=== PATIENT | female | born 1965 | race Caucasian/White ===

== ENCOUNTER 2019-09-05 09:58 | Emergency (ER) | payer BC ==
[~2019-09-05] VITALS: Ht 160 cm; Wt 78.0 kg
[2019-09-05] MEDS ORDERED: LIPITOR10 M1 PO (10:34)
[2019-09-05] MEDS ORDERED: METFORMIN500 M2 PO (10:35)
[2019-09-05 10:47] LABS: HEMATOCRIT 54.9 % (37.0-47.0); HEMOGLOBIN 18.1 g/dl (12.0-16.0); IMMATURE GRANULOCYTES 0.4 % (0.0-5.0); MEAN CELL VOLUME 89.9 fL CALC (80.0-100.0); MEAN CORPUSCULAR HGB 29.6 pG CALC (26.0-32.0); NEUT# 7.64 thou/uL (2.00-7.15); RED BLOOD COUNT 6.11 mill/uL (4.20-5.60); RED CELL DISTRI WIDTH 14.6 % (11.5-15.5)
[2019-09-05 11:05] LABS: ALBUMIN 4.7 g/dL (3.2-5.0); ALKALINE PHOSPHATASE 80 u/l (38-126); ANION GAP 10 (6-22 (CALC)); BILIRUBIN, TOTAL 0.4 mg/dL (0.0-1.4); BUN 8 mg/dL (7-17); BUN/CREATININE RATIO 14 (12-20 (CALC)); CARBON DIOXIDE 32 mmol/l (22-30); CHLORIDE 101 mmol/l (95-108); CREATININE 0.5 mg/dL (0.5-1.0); GFR > 60 ML/MIN (>=60 (CALC)); GFR FOR AFR.AMER. > 60 ML/MIN (>=60 (CALC)); POTASSIUM 4.1 mmol/l (3.5-5.1); SGOT/AST 25 u/l (14-36); SODIUM 139 mmol/l (137-146); TOTAL PROTEIN 7.2 g/dL (6.3-8.2)
[2019-09-05 11:20] VITALS: BP 177/67
[2019-09-05] MEDS ORDERED: ROBITUSSIN AC10 ML PO (11:24)
[2019-09-05] MEDS ORDERED: CEPHALEXIN500 MG PO (11:24)
--- NOTE | 2019-09-07 12:43 | NUR ---
Notified patient of negative Covid results. Patient c/o continued cough. Advised patient to follow up with PCP or return to ED with difficulty breathing or other urgent needs. Patient verbalized understanding.
== END 2019-09-05 11:40 | disposition home or self-care (01) | DRG 153 ==
LOC: ED 09:58
PROVIDERS: Emergency Medicine
DX: J06.9 Acute upper respiratory infection, unspecified (principal); E11.9 Type 2 diabetes mellitus without complications; Z79.84 Long term (current) use of oral hypoglycemic drugs; Z20.828 Contact with and (suspected) exposure to other viral communicable diseases

== ENCOUNTER 2022-05-15 10:53 | Emergency (ER) | payer SELFPAY ==
[~2022-05-15] VITALS: Ht 160 cm; Wt 58.1 kg
[~2022-05-15 10:53] MED LIST: CEPHALEXIN500 MG PO; LIPITOR10 M1 PO; METFORMIN500 M2 PO; ROBITUSSIN AC10 ML PO
[2022-05-15] MEDS ORDERED: PROCTO-MED HC2.5 % PR (11:17)
[2022-05-15 11:35] VITALS: BP 144/78
== END 2022-05-15 11:37 | disposition home or self-care (01) | DRG 395 ==
LOC: ED 10:53
DX: K62.89 Other specified diseases of anus and rectum (principal); K64.9 Unspecified hemorrhoids; E11.9 Type 2 diabetes mellitus without complications; Z79.84 Long term (current) use of oral hypoglycemic drugs

== ENCOUNTER 2022-08-01 10:03 | Day surgery (SDC) | payer SELFPAY ==
[~2022-08-01] VITALS: Ht 162.6 cm; Wt 70.8 kg
[~2022-08-01 10:03] MED LIST changes: +ACETAMINOPHEN325 MG PO; +MOTRIN400 MG/TAB PO; +PAROXETINE10 MG PO; +PROCTO-MED HC2.5 % PR
[2022-08-01] MEDS ORDERED: PERCOCET 5/321 COMBO PO (12:29)
[2022-08-01 14:19] VITALS: BP 111/68
== END 2022-08-01 13:40 | disposition home or self-care (01) | DRG 845 ==
LOC: ENDO 10:03 → ORM 12:35 → ENDO 13:05 → ORM 13:05 → ENDO 13:40
PROVIDERS: ATTEND Surgery
PROC: 0DBN8ZX Excision of Sigmoid Colon, Via Natural or Artificial Opening Endoscopic, Diagnostic (ICD-10-PCS; principal; 2022-08-01)
PROC: 0DBP3ZX Excision of Rectum, Percutaneous Approach, Diagnostic (ICD-10-PCS; 2022-08-01)
DX: C7A.8 Other malignant neuroendocrine tumors (principal); D12.5 Benign neoplasm of sigmoid colon; K64.4 Residual hemorrhoidal skin tags; E11.9 Type 2 diabetes mellitus without complications; F41.9 Anxiety disorder, unspecified; F17.210 Nicotine dependence, cigarettes, uncomplicated
CPT/HCPCS: C9290; J0131; J0690; J1100

== ENCOUNTER 2022-11-03 20:49 | Emergency (ER) | payer SELFPAY ==
[~2022-11-03] VITALS: Ht 160 cm; Wt 67.0 kg
[~2022-11-03 20:49] MED LIST changes: +PERCOCET 5/321 COMBO PO
[2022-11-03 22:16] LABS: BASO% 0.5 % (0-3); EOS% 1.4 % (0-8); IMMATURE GRANULOCYTES 3.2 % (0.0-5.0); MEAN CELL VOLUME 94.3 fL CALC (80.0-100.0); MEAN CORPUSCULAR HGB 32.1 pG CALC (26.0-32.0); MEAN CORPUSCULAR HGB CONC 34.1 g/dL CAL (32.0-36.0); MONO% 7.2 % (2-13); NEUT# 10.53 thou/uL (2.00-7.15); NEUT% 61.1 % (42-76); RED BLOOD COUNT 4.36 mill/uL (4.20-5.60); RED CELL DISTRI WIDTH 17.5 % (11.5-15.5)
[2022-11-03 22:27] LABS: ALBUMIN 4.1 g/dL (3.2-5.0); ALKALINE PHOSPHATASE 139 u/l (38-126); ANION GAP 11 (6-22 (CALC)); BILIRUBIN, TOTAL 0.2 mg/dL (0.02-1.3); BUN 8 mg/dL (7-17); BUN/CREATININE RATIO 15 (12-20 (CALC)); CARBON DIOXIDE 28 mmol/l (22-30); CHLORIDE 101 mmol/l (95-108); CREATININE 0.5 mg/dL (0.5-1.0); GFR FOR AFR.AMER. > 60 ML/MIN (>=60 (CALC)); GFR OTHER RACES > 60 ML/MIN (>=60 (CALC)); POTASSIUM 3.7 mmol/l (3.5-5.1); SGOT/AST 40 u/l (14-36); SODIUM 136 mmol/l (137-146)
[2022-11-03 22:31] LABS: HEMATOCRIT 41.1 % (37.0-47.0); LYMPH% 26.6 % (15-41)
[2022-11-03 23:38] LABS: URINE BILIRUBIN - DIPSTICK Negative (NEGATIVE); URINE BLOOD DIPSTICK Trace-intact (NEGATIVE); URINE COLOR Yellow; URINE GLUCOSE - DIPSTICK Negative (NEGATIVE); URINE KETONE Negative (NEGATIVE); URINE LEUK ESTERASE Negative (NEGATIVE); URINE NITRITE - DIPSTICK Negative (Negative); URINE PH 6.5 (4.5-8.0); URINE PROTEIN - DIPSTICK Negative (NEG-TRACE); URINE UROBILINOGEN - DIPSTICK 0.2 E.U./dL (0.2)
[2022-11-04] MEDS ORDERED: CIPROFLOXACN500 MG PO (00:51)
[2022-11-04] MEDS ORDERED: ULTRAM50 MG PO (00:52)
[2022-11-04 01:56] VITALS: BP 155/82
== END 2022-11-04 01:56 | disposition home or self-care (01) | DRG 556 ==
LOC: ED 20:49
PROVIDERS: Emergency Medicine
DX: M79.10 Myalgia, unspecified site (principal); D72.829 Elevated white blood cell count, unspecified; C20 Malignant neoplasm of rectum; E11.9 Type 2 diabetes mellitus without complications; E78.00 Pure hypercholesterolemia, unspecified; F17.200 Nicotine dependence, unspecified, uncomplicated; Z20.822 Contact with and (suspected) exposure to COVID-19
CPT/HCPCS: J1956